=== PATIENT | male | born 1955 | race Caucasian/White ===

== ENCOUNTER 2017-07-29 15:26 | Inpatient (IN) | payer SELFPAY ==
[~2017-07-29] VITALS: Ht 165.1 cm; Wt 103.6 kg
[2017-07-29 15:31] VITALS: BP 181/80
[2017-07-29] MEDS ORDERED: ACETAMINOPHEN 325 MG TAB ONE (15:39)
[2017-07-29 16:36] LABS: HEMATOCRIT 44.4 % (36-52); MEAN CORPUSCULAR HEMOGLOBIN 31 pg (27-31); MEAN CORPUSCULAR HGB CONC 34 g/dL (33-37); MEAN CORPUSCULAR VOLUME 91 fL (80-94); PLATELET COUNT (AUTO) 168 K/uL (140-450); RED BLOOD CELL COUNT(AUTO) 4.87 MIL/uL (4.20-6.10); RED CELL DISTRIBUTION WIDTH 13.2 % (11.6-13.7); WHITE BLOOD COUNT (AUTO) 15.1 K/uL (4.8-10.8)
[2017-07-29 16:43] LABS: ANION GAP 17.1 (8-16); CARBON DIOXIDE 22.1 mmol/L (21-32); POTASSIUM 4.2 mmol/L (3.5-5.1)
[2017-07-29 16:51] LABS: ALBUMIN 3.8 g/dL (3.4-5.0); LYMPHOCYTES % (MANUAL) 7 % (20-46); MONOCYTES % (MANUAL) 2 % (5-12); TOTAL BILIRUBIN 1.3 mg/dL (0.0-1.0)
--- NOTE | 2017-07-29 17:22 | NUR ---
Patient wheelchair assisted to bed 12.
--- NOTE | 2017-07-29 17:23 | NUR ---
62/M BIB FAMILY FOR RIGHT & MID ADOMINAL PAIN X 1 DAY. DENIES N/V/D; SKIN IS PINK/WARM/DRY; AAOX4 WITH EVEN AND STEADY GAIT; LUNGS CLEAR BL; HR EVEN AND REGULAR; PT DENIES ANY FEVER, CP, SOB, OR COUGH AT THIS TIME; PATIENT STATES PAIN OF 5/10 AT THIS TIME. PATIENT POSITIONED FOR COMFORT; HOB ELEVATED; BEDRAILS UP X2; BED DOWN. ER MD MADE AWARE OF PT STATUS.
[2017-07-29] MEDS ORDERED: ACETAMINOPHEN EXTRA STRENGTH 500 MG TAB PO ONE (17:35)
[2017-07-29] MEDS ORDERED: MORPHINE SULFATE 4 MG/ML SYR IVP ONE (17:45)
--- NOTE | 2017-07-29 17:50 | NUR ---
GAVE TYLENOL [address] CARLITO ANDREW D/T SAM GAVE PT TYLENOL 650 MG PO AT 1540
--- NOTE | 2017-07-29 19:04 | NUR ---
GAVE REPORT TO KIA BAILEY & KIA MUÑOZ.
[2017-07-29] MEDS ORDERED: HYDROcodone/APAP 7.5/325 MG 1 TAB PO PRN (19:10)
[2017-07-29] MEDS ORDERED: DOCUSATE SODIUM 100 MG GELCAP PO PRN (19:10)
[2017-07-29] MEDS ORDERED: ONDANSETRON 4 MG/2 ML VIAL IM/IVP PRN (19:10)
--- NOTE | 2017-07-29 19:15 | NUR ---
report recieved from verona cordova
--- NOTE | 2017-07-29 19:19 | NUR ---
Patient will be admitted to care of dr ARMSTRONG . Admited to TELE Will go to room 119a. Belongings list completed. Report to JOHN ADAM.
--- NOTE | 2017-07-29 19:30 | NUR ---
ADMITTED PATIENT TO THE TELE UNIT. PATIENT AWAKE ALERT ORIENTED X4, SPEAKS ANGUILLAN, BUT A LITTLE BIT CANADIAN. TELE MONITOR IS PLACED ON PATIENT, IV PATENT AND INTACT, FLUSHED WITH 10CC NS. PLAN OF CARE DISCUSSED, PATIENT VERBALIZED UNDERSTANDING, CALL LIGHT WITHIN REACH, SAFETY MEASURE ENSURED, WILL CONTINUE TO MONITOR.
[2017-07-29 19:45] VITALS: BP 154/76
[2017-07-29 19:49] LABS: PROTHROMBIN TIME 12.1 secs (10.8-13.4)
[2017-07-29 19:51] LABS: MAGNESIUM 1.5 mg/dL (1.8-2.4); PHOSPHORUS 1.8 mg/dL (2.5-4.9); THYROID STIMULATING HORMONE 1.11 uIU/mL (0.34-3.74)
[2017-07-29] MEDS: NACL 0.9% 1,000 ML IV SCH (22:13)
[2017-07-29] MEDS: LEVOFLOXACIN 750 MG/D5W PREMIX 150 ML IV SCH (22:20)
--- NOTE | 2017-07-29 22:20 | NUR ---
DUE MEDICATION ADMINISTERED, PATIENT TOLERATED WELL. NO S/S OF DISTRESS NOTED, CALL LIGHT WITHIN REACH, SAFETY MEASURE ENSURED, WILL CONTINUE TO MONITOR.
[2017-07-29] MEDS ORDERED: MAG SULF 2000 MG/WATER PREMIX 50 ML IV SCH (22:30)
--- NOTE | 2017-07-29 23:30 | NUR ---
CRITICAL LAB LACTIC ACID 3.2, DR. LU IS AWARE. WILL CONTINUE TO MONITOR.
[2017-07-29] MEDS: metroNIDAZOLE 500 MG/NS PREMIX 100 ML IV SCH (23:38)
[2017-07-30] VITALS: BP 121/71
--- NOTE | 2017-07-30 00:01 | NUR ---
PATIENT IS SLEEPING, NO S/S OF DISTRESS NOTED, RESPIRATION EVEN AND UNLABORED, ON ROOM AIR. CALL LIGHT WITHIN REACH, SAFETY MEASURE ENSURED, WILL CONTINUE TO MONITOR
--- NOTE | 2017-07-30 02:50 | NUR ---
NO CHANGE IN CONDITION, PATIENT IS SLEEPING, NO S/S OF DISTRESS NOTED, RESPIRATION EVEN AND UNLABORED, ON ROOM AIR. CALL LIGHT WITHIN REACH, SAFETY MEASURE ENSURED, WILL CONTINUE TO MONITOR
[2017-07-30 04:00] VITALS: BP 127/70
[2017-07-30] MEDS: ACETAMINOPHEN 325 MG TAB PO PRN ×2 (05:04→20:40)
[2017-07-30] MEDS: metroNIDAZOLE 500 MG/NS PREMIX 100 ML IV SCH ×3 (05:04→17:23)
[2017-07-30] MEDS: NACL 0.9% 1,000 ML IV SCH ×3 (05:05→18:01)
--- NOTE | 2017-07-30 05:15 | NUR ---
TEMP 100.9, TYLENOL ADMINISTERED ORDERED, WILL CONTINUE TO MONITOR.
[2017-07-30] MEDS: SODIUM PHOS / POTASSIUM PHOS 1 PKT PDR PO SCH ×2 (05:48→20:39)
--- NOTE | 2017-07-30 05:54 | NUR ---
TEMP 98.1, DUE MEDICATION GIVEN, PATIENT TOLERATED WELL. NO S/S OF DISTRESS NOTED, WILL CONTINUE TO MONITOR.
[2017-07-30 06:09] LABS: HEMATOCRIT 42.2 % (36-52); MEAN CORPUSCULAR HEMOGLOBIN 31 pg (27-31); MEAN CORPUSCULAR HGB CONC 33 g/dL (33-37); MEAN CORPUSCULAR VOLUME 92 fL (80-94); PLATELET COUNT (AUTO) 160 K/uL (140-450); RED BLOOD CELL COUNT(AUTO) 4.57 MIL/uL (4.20-6.10); RED CELL DISTRIBUTION WIDTH 13.3 % (11.6-13.7)
[2017-07-30 06:20] LABS: T4 (THYROXINE) 10.8 ug/dL (4.5-12.0)
[2017-07-30 06:50] LABS: ANION GAP 13.6 (8-16); CARBON DIOXIDE 24.3 mmol/L (21-32); CREATININE 1.1 mg/dL (0.7-1.3); POTASSIUM 3.9 mmol/L (3.5-5.1)
--- NOTE | 2017-07-30 07:25 | NUR ---
ENDORSED PLAN OF CARE TO DAY SHIFT RN. PATIENT IS IN STABLE CONDITION.
--- NOTE | 2017-07-30 07:30 | NUR ---
RECEIVED REPORT FROM BUSINESS PROCESS SPECIALIST NURSE. PT IS RESTING IN BED, AAOX4, AMBULATORY, IV IS ON THE LEFT HAND, PATENT, INTACT, FLUSHING WELL, NO S/S OF RESPIRATORY DISTRESS NOTED, PT COMPLAINING OF 8/10 ABDOMINAL PAIN. WILL MEDICATE WITH PRN PAIN MEDICATION. DISCUSSED PLAN OF CARE WITH PT, PT VERBALIZED UNDERSTANDING, CALL LIGHT IS WITHIN REACH, WILL CONTINUE TO MONITOR.
[2017-07-30 08:00] VITALS: BP 123/67
[2017-07-30] MEDS: METOPROLOL 25 MG TAB PO SCH ×2 (08:17→20:39)
[2017-07-30] MEDS: MORPHINE SULFATE 2 MG/ML SYR IVP PRN ×3 (08:18→20:40)
[2017-07-30] MEDS: LISINOPRIL 10 MG TAB PO SCH (08:18)
[2017-07-30] MEDS: LACTOBACILLUS RHAMNOSUS GG 1 EACH CAP PO SCH (08:19)
--- NOTE | 2017-07-30 08:45 | NUR ---
PT OFF UNIT TO HAVE X RAY OF THE ABDOMEN DONE AT THIS TIME. PT LEFT IN STABLE CONDITION.
--- NOTE | 2017-07-30 09:00 | NUR ---
PT RETURNED TO UNIT FROM RADIOLOGY. PT RESTING IN BED AT THIS TIME, NO S/S OF RESPIRATORY DISTRESS OR DISCOMFORT NOTED. CALL LIGHT IS WITHIN REACH.
[2017-07-30 09:06] LABS: LYMPHOCYTES % (MANUAL) 13 % (20-46); MONOCYTES % (MANUAL) 3 % (5-12)
[2017-07-30 12:00] VITALS: BP 124/58
--- NOTE | 2017-07-30 12:00 | NUR ---
NG TUBE INSERTION ATTEMPTED AT THIS TIME, PT UNABLE TO TOLERATE AT THIS TIME. WILL RE ATTEMPT NG TUBE INSERTION LATER.
[2017-07-30] MEDS ORDERED: SODIUM PHOS / POTASSIUM PHOS 1 PKT PDR PO SCH (13:01)
--- NOTE | 2017-07-30 14:00 | NUR ---
PT SLEEPING IN BED AT THIS TIME, CALL LIGHT WITHIN REACH. WILL CONTINUE TO MONITOR.
--- NOTE | 2017-07-30 14:24 | NUR ---
07/30/2017 RD INITIAL ASSESSMENT COMPLETED PLEASE REFER TO NUTRITION ASSESSMENT UNDER CARE ACTIVITY FOR ESTIMATED NUTRITIONAL NEEDS. CONTINUE NPO DIET MEDICALLY NECESSARY. WHEN MEDICALLY FEASIBLE, ADVANCE TO REGULAR DIET TOLERATED WITHIN 3-[address] TO FOLLOW-UP IN 3-5 DAYS PATIENT IS MODERATE RISK. JOY CANTU RD Addendum: 07/30/17 at [address] CORRECTION: ADVANCE TO REGULAR DIET TOLERATED WITHIN 2-3 DAYS
[2017-07-30 15:59] LABS: APPEARANCE,URINE CLEAR (CLEAR); BILIRUBIN,URINE NEGATIVE (NEGATIVE); BLOOD, URINE NEGATIVE (NEGATIVE); COLOR,URINE YELLOW (YELLOW); LEUKOCYTE ESTERASE ,URINE NEGATIVE (NEGATIVE); NITRITE, URINE NEGATIVE (NEGATIVE); UGLUCOSE NEGATIVE (NEGATIVE)
[2017-07-30 16:00] VITALS: BP 147/87
[2017-07-30 16:08] LABS: BARBITURATE, URINE NEG. ng/ml (NEG <=200); BENZODIAZEPINE, URINE NEG. ng/mL (NEG <=200); CANNABINOID, URINE NEG. ng/mL (NEG <=50); COCAINE, URINE NEG. ng/mL (NEG <=300); OPIATE, URINE POS. ng/mL (NEG <=2000); PHENCYCLIDINE SCREEN,URINE NEG. ng/mL (NEG <=25)
[2017-07-30 16:14] LABS: RBC,URINE NONE SEEN /HPF (0-5)
--- NOTE | 2017-07-30 17:00 | NUR ---
NG TUBE INSERTED AT LEFT NARE, PT TOLERATED WELL, DR. GUZMAN INFORMED, DOCTOR WILL PUT AN ORDER FOR AN X -RAY OF THE CHEST TO CONFIRM PLACEMENT OF NG TUBE
[2017-07-30] MEDS ORDERED: MORPHINE SULFATE 2 MG/ML SYR IVP SCH (17:02)
--- NOTE | 2017-07-30 19:09 | NUR ---
AT 1909, ENDORSED PT TO DATA STEWARD NURSE FOR CONTINUITY OF CARE, PT AWAKE , PT STABLE AT THIS TIME. FAMILY IS AT BEDSIDE.
--- NOTE | 2017-07-30 19:15 | NUR ---
RECEIVED REPORT FROM DAY SHIFT RN, PATIENT RESTING IN BED, AWAKE ALERT ORIENTED X4, NO S/S OF DISTRESS NOTED, RESPIRATION EVEN AND UNLABORED, FRIENDS AT THE BEDSIDE. NOTED NG TUBE PLACED THROUGH LEFT NARE, WITH MODERATED INTERMITTENT SUCTION, 100ML BROWN COLOR GASTRIC FLUIDS NOTED. IV PATENT AND INTACT, INFUSING NS AT 150ML/HR. PLAN OF CARE DISCUSSED, PATIENT VERBALIZED UNDERSTANDING, CALL LIGHT WITHIN REACH, SAFETY MEASURE ENSURED, WILL CONTINUE TO MONITOR.
[2017-07-30 20:00] VITALS: BP 163/92
--- NOTE | 2017-07-30 20:10 | NUR ---
TEMP 101, PAIN 7/10, BP 163/92, RR 23, O2SAT 93%, WILL ADMINISTER PRN MEDICATION ORDERED.
--- NOTE | 2017-07-30 20:58 | NUR ---
OFFERED ICE PACK AND ADMINISTERED TYLENOL, AND MORPHINE ORDERED. PATIENT TOLERATED WELL. NO S/S OF DISTRESS NOTED, RESPIRATION EVEN AND UNLABORED, CALL LIGHT WITHIN REACH, SAFETY MEASURE ENSURED, WILL CONTINUE TO MONITOR.
[2017-07-30] MEDS: LEVOFLOXACIN 750 MG/D5W PREMIX 150 ML IV SCH (22:00)
--- NOTE | 2017-07-30 22:00 | NUR ---
TEMP 100.1, BP 181/90, HR 103, CALLED DR. LU, WAS INFORMED HE IS IN ICU, LEFT MESSAGE TO THE ICU NURSE THAT PATIENT BP 181/90, HR 103. WILL CONTINUE TO MONITOR PATIENT.
[2017-07-30] MEDS ORDERED: hydrALAZINE 20 MG/ML VIAL IVP PRN (22:50)
--- NOTE | 2017-07-30 23:45 | NUR ---
TEMP 100.2, BP 141/72, HR 105, O2SAT 90%, RR 24. PATIENT RESTING IN BED, NO S/S OF DISTRESS NOTED, ICE PACK UNDER ARMPIT. CALL LIGHT WITHIN REACH, SAFETY MEASURE ENSURED, WILL CONTINUE TO MONITOR.
[2017-07-31] VITALS: BP 141/72
[2017-07-31] MEDS: metroNIDAZOLE 500 MG/NS PREMIX 100 ML IV SCH ×4 (00:42→18:36)
[2017-07-31] MEDS: NACL 0.9% 1,000 ML IV SCH ×4 (00:43→20:29)
--- NOTE | 2017-07-31 02:02 | NUR ---
PATIENT IS SLEEPING, NO S/S OF DISTRESS NOTED, RESPIRATION EVEN AND UNLABORED, CALL LIGHT WITHIN REACH, SAFETY MEASURE ENSURED, WILL CONTINUE TO MONITOR.
[2017-07-31 04:00] VITALS: BP 162/71
[2017-07-31] MEDS: MORPHINE SULFATE 2 MG/ML SYR IVP PRN ×2 (04:13→08:39)
--- NOTE | 2017-07-31 04:13 | NUR ---
TEMP 99.3 BP 162/71 HR 101, PAIN 8/10, PAIN MEDICATION ADMINISTERED ORDERED, WILL CONTINUE TO MONITOR.
--- NOTE | 2017-07-31 04:49 | NUR ---
PATIENT WAS SLEEPING, BUT EASY TO AROUSE, BP 134/67, HR 95, STATED," FEEL BETTER." WILL CONTINUE TO MONITOR.
[2017-07-31] MEDS: SODIUM PHOS / POTASSIUM PHOS 1 PKT PDR PO SCH ×2 (05:35→08:38)
--- NOTE | 2017-07-31 06:13 | NUR ---
PATIENT AWAKE, NO DISTRESS NOTED, RESPIRATION EVEN AND UNLABORED, CALL LIGHT WITHIN REACH, SAFETY MEASURE ENSURED, WILL CONTINUE TO MONITOR.
--- NOTE | 2017-07-31 07:16 | NUR ---
ENDORSE PLAN OF CARE TO DAY SHIT RN, PATIENT RESTING IN BED, IN STABLE CONDITION.
--- NOTE | 2017-07-31 07:20 | NUR ---
RECEIVED REPORT FROM COMMERCIAL LINES MANAGER NURSE. PT IS RESTING IN BED, AAOX4, AMBULATORY, IV IS ON THE LEFT HAND, PATENT, INTACT, FLUSHING WELL, PT HAS NG TUBE IN LEFT NARES ON LOW TO MODERATE INTERMITTENT SUCTION, NO S/S OF RESPIRATORY DISTRESS NOTED, PT COMPLAINING OF 8/10 ABDOMINAL PAIN. WILL MEDICATE WITH PRN PAIN MEDICATION. DISCUSSED PLAN OF CARE WITH PT, PT VERBALIZED UNDERSTANDING, CALL LIGHT IS WITHIN REACH, WILL CONTINUE TO MONITOR.
[2017-07-31 07:32] LABS: PROTHROMBIN TIME 13.7 secs (10.8-13.4)
[2017-07-31 07:33] LABS: ANION GAP 17.6 (8-16); CARBON DIOXIDE 19.2 mmol/L (21-32); CREATININE 1.1 mg/dL (0.7-1.3); POTASSIUM 3.8 mmol/L (3.5-5.1)
[2017-07-31 07:37] LABS: MAGNESIUM 1.7 mg/dL (1.8-2.4); PHOSPHORUS 1.9 mg/dL (2.5-4.9)
[2017-07-31 07:51] LABS: HEMATOCRIT 45.3 % (36-52)
[2017-07-31 07:58] LABS: HEMOGLOBIN 15.3 g/dL (12.0-18.0); MEAN CORPUSCULAR HEMOGLOBIN 31 pg (27-31); MEAN CORPUSCULAR HGB CONC 34 g/dL (33-37); MEAN CORPUSCULAR VOLUME 93 fL (80-94); PLATELET COUNT (AUTO) 183 K/uL (140-450); RED CELL DISTRIBUTION WIDTH 13.5 % (11.6-13.7); WHITE BLOOD COUNT (AUTO) 18.9 K/uL (4.8-10.8)
[2017-07-31 08:00] VITALS: BP 159/82
[2017-07-31] MEDS: LACTOBACILLUS RHAMNOSUS GG 1 EACH CAP PO SCH (08:39)
--- NOTE | 2017-07-31 08:39 | NUR ---
DUE MEDICATIONS GIVEN VIA NG TUBE, PT TOLERATED WELL, CALL LIGHT IS WITHIN REACH, WILL CONTINUE TO MONITOR.
[2017-07-31] MEDS: METOPROLOL 25 MG TAB PO SCH ×2 (08:40→21:21)
[2017-07-31] MEDS: LISINOPRIL 10 MG TAB PO SCH (08:42)
[2017-07-31 09:19] LABS: LYMPHOCYTES % (MANUAL) 9 % (20-46); MONOCYTES % (MANUAL) 6 % (5-12)
[2017-07-31] MEDS ORDERED: MAGNESIUM OXIDE 400 MG TAB NG SCH (10:00)
--- NOTE | 2017-07-31 11:00 | NUR ---
PT IS RESTING IN BED AT THIS TIME, CALL LIGHT IS WITHIN REACH.
[2017-07-31 12:00] VITALS: BP 139/80
--- NOTE | 2017-07-31 14:25 | NUR ---
PT RETURNED TO UNIT FROM CT-SCAN STUDY. PT IN STABLE CONDITION, RESTING IN BEDS, ALL NEEDS ARE MET, CALL LIGHT WITHIN REACH.
--- NOTE | 2017-07-31 14:32 | NUR ---
CM NOTE FAXED INQUIRY TO HEMALATHA MUÑOZ [phone] # [phone]
--- NOTE | 2017-07-31 15:47 | NUR ---
PT SLEEPING IN BED AT THIS TIME, NO S/S OF RESPIRATORY DISTRESS OR DISCOMFORT NOTED, CALL LIGHT WITHIN REACH.
[2017-07-31 16:00] VITALS: BP 158/94
--- NOTE | 2017-07-31 16:00 | NUR ---
CALLED [facility] AT [phone], OPTION #2, #3. I SPOKE TO LEO I LET HER KNOW I WAS CALLING FROM [facility] AND I WAS CALLING BACK TO FOLLOW UP ON A PHONE CALL THEY HAD MADE EARLIER. LEO SAID THEY HAD CALLED REGARDING FAXING OVER A LETTER OF AGREEMENT SINCE THIS IS A SELF PAY PATIENT. I GAVE THEM THE FAX NUMBER TO [facility]. I WILL TURN IN THE FAX TO [facility] ONCE IT IS RECEIVED.
--- NOTE | 2017-07-31 19:32 | NUR ---
ENDORSED PT TO TIN POT OPERATOR NURSE FOR CONTINUITY OF CARE. PT STABLE AT THIS TIME.
--- NOTE | 2017-07-31 19:33 | NUR ---
RECEIVED REPORT FROM DAY SHIFT RN, PATIENT RESTING IN BED, NO S/S OF DISTRESS NOTED, NG TUBE IN PLACE, SUCTION ON MODERATE INTERMITTENT. IV PATENT AND INTACT, INFUSING NS AT 150ML/HR. PLAN OF CARE DISCUSSED, PATIENT VERBALIZED UNDERSTANDING, CALL LIGHT WITHIN REACH, SAFETY MEASURE ENSURED, WILL CONTINUE TO MONITOR.
--- NOTE | 2017-07-31 20:41 | NUR ---
PATIENT AWAKE ALERT ORIENTED X4, PATIENT DOES NOT WANT TO WAIT 911 EMERGENCY DISPATCHER TO ARRANGE THE HIGHER LEVEL OF CARE. PATIENT SIGNED AMA. PATIENT'S FRIENDS WHO ARE RESPONSIBLE FOR PICKING HIM UP ARE AT THE BEDSIDE.
[2017-07-31] MEDS ORDERED: SODIUM PHOS / POTASSIUM PHOS 1 PKT PDR NG SCH (21:00)
--- NOTE | 2017-07-31 21:05 | NUR ---
1600 CALLED [facility] AND SPOKE WITH DECKHAND CRAB BOAT SURINDER AND REQUESTED MED/SURGE BED AND PROVIDED INFORMATION THAT DR BRISCOE STATED HE WOULD BE ACCEPTING PHYSICIAN IF PT ACCEPTED FOR TRANSFER. INFORMED SURINDER THAT AT THIS TIME PT IS CONSIDERED A SELF PAY DUE TO PT'S IEHP/MCAL HAD LAPSED AND AT THIS TIME JUSTINE IS WORKING ON GETTING PT'S IEHP/MCAL REINSTATED. PER SURINDRE SHE WOULD NEED TO CONFER WITH CASE MANAGEMENT. SPOKE WITH RUY IN AND HE STATED THAT HE WOULD NEED TO CONFER WITH DECKHAND CRAB BOAT IF PT CAN BE ACCEPTED. 1700 RECEIVED CALL BACK FROM RUY AND HE STATED AT THIS TIME IT WOULD TAKE ADMINISTRATIVE APPROVAL TO ACCEPT PT A SELF PAY. INFORMED FAY CHARGE NURSE. PER JANET ASSIGNED NURSE HEMALATHA MUÑOZ CANNOT ACCEPT PT UNLESS FACILITY IS WILLING TO AGREE TO COVER ALL OF PTS CARE NEEDS FINANCIALLY.
--- NOTE | 2017-07-31 21:20 | NUR ---
RECEIVED CALL FROM [facility] .THAT THEY WILL F/U REQUEST FOR TRANSFER PT.
[2017-07-31] MEDS ORDERED: APR20I IVP (21:53)
[2017-07-31] MEDS ORDERED: METO25TA PO (21:53)
[2017-07-31] MEDS ORDERED: LISI10TA11 PO (21:53)
--- NOTE | 2017-07-31 21:54 | NUR ---
PATIENT CHANGED HIS MIND, HE WILL BE TRANSFERRED TO [facility].
[2017-07-31 21:58] VITALS: BP 143/71
--- NOTE | 2017-07-31 22:01 | NUR ---
Dr. Lou spoke to me regarding transferring patient to higher level of care regarding a procedure. Family member also approached me that they are upset that the patient need to go to another hospital for a possible surgery. I explained the process of transferring patient to another hospital for higher level. I informed Dr Lou to speak to Dr Aburto and have Dr. Aburto speak to the nursing sanding supervisor at [facility] and I gave Carmine Crump the phone number to the sanding supervisor. On my end I will contact the nursing sanding supervisor to see if bed available, but Dr. Aburto need to accept first and contact the nursing sanding supervisor. I spoke to Ravinder and wants the face sheet faxed to her and she stated that Dr. Aburto did speak to her and wants the patient to go to [facility]. bed was given [id number]. and number to call report. Face sheet was faxed to her. Family were notified and were happy. Dr. Lou made aware. Kayley, Director of case technician also made aware. Information was given to assigned nurse Linda to call report.
--- NOTE | 2017-07-31 22:35 | NUR ---
REPORT GIVEN TO KIA MIRANDA FROM [facility].
[2017-07-31] MEDS: LEVOFLOXACIN 750 MG/D5W PREMIX 150 ML IV SCH (22:41)
--- NOTE | 2017-07-31 23:20 | NUR ---
REPORT GIVEN TO ORALIA FROM [facility]. PATIENT LEFT UNIT IN STABLE CONDITION.
[2017-08-01] MEDS ORDERED: SODIUM PHOS / POTASSIUM PHOS 1 PKT PDR NG SCH (09:00)
== END 2017-07-31 23:20 | disposition short-term general hospital (02) | DRG 871 ==
LOC: MED 15:26 → MTU 19:10
PROVIDERS: ADMIT Student in an Organized Health Care Education/Training Program; ATTEND Student in an Organized Health Care Education/Training Program
PROC: 0D9670Z Drainage of Stomach with Drainage Device, Via Natural or Artificial Opening (ICD-10-PCS; principal; 2017-07-30)
DX: A41.9 Sepsis, unspecified organism (principal); N17.0 Acute kidney failure with tubular necrosis; K56.51 Intestinal adhesions [bands], with partial obstruction; K57.20 Diverticulitis of large intestine with perforation and abscess without bleeding; E83.39 Other disorders of phosphorus metabolism; E66.01 Morbid (severe) obesity due to excess calories; E83.42 Hypomagnesemia; K74.60 Unspecified cirrhosis of liver; I16.0 Hypertensive urgency; Z68.38 Body mass index [BMI] 38.0-38.9, adult; R80.9 Proteinuria, unspecified; I10 Essential (primary) hypertension; R65.20 Severe sepsis without septic shock; K66.8 Other specified disorders of peritoneum; K59.00 Constipation, unspecified; E66.9 Obesity, unspecified; K57.30 Diverticulosis of large intestine without perforation or abscess without bleeding
CPT/HCPCS: 36415; 71045; 74021; 80048; 80053; 80305; 81001; 82140; 83036; 83605; 83690; 83735; 84100; 84436; 84443; 84479; 84484; 85025; 85610; 85730; 87040; 87081; 87086; 93005; 96374; 99285; J1956; J2270; J2405; J3475; J3490; J7030; Q0092